=== PATIENT | female | born 1995 | race Caucasian/White ===

== ENCOUNTER → 2016-11-12 02:17 | Emergency (ER) | payer SELFPAY ==
[~2016-11-12 02:17] MED LIST: Ibuprofen TAB* 800 MG PO ONE; Iohexol 300* (CONTRAST) 10 ML SDV IV ONE
[2016-11-12 04:50] LABS: Hematocrit 38 % (35-47); Mean Corpuscular HGB Conc 35 g/dl (31-36); Mean Corpuscular Hemoglobin 30 pg (27-31); Mean Corpuscular Volume 88 fL (80-97); Mean Platelet Volume 7 um3 (7.4-10.4); Red Blood Count 4.29 10^6/ul (4.0-5.4); Red Cell Distribution Width 13 % (10.5-15); White Blood Count 6.9 10^3/ul (3.5-10.8)
[2016-11-12 05:02] LABS: ALT 10 U/L (7-52); AST 16 U/L (13-39); Albumin 4.3 g/dL (3.2-5.2); Alkaline Phosphatase 38 U/L (34-104); Anion Gap 6 mmol/L (2-11); BUN/Creatinine Ratio 18.6 (8-20); Blood Urea Nitrogen 11 mg/dL (6-24); CO2 Carbon Dioxide 24 mmol/L (22-32); Chloride 107 mmol/L (101-111); EGFR African American 163.9 (>60); EGFR Non-African American 127.5 (>60); Globulin 2.4 g/dL (2-4); Glucose 91 mg/dL (70-100); Potassium 3.7 mmol/L (3.5-5.0); Sodium 137 mmol/L (133-145); Total Protein 6.7 g/dL (6.4-8.9)
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
[2016-11-12 10:29] VITALS: BP 123/68
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
== END | disposition home or self-care (01) ==
LOC: ED 02:17
DX: S63.501A Unspecified sprain of right wrist, initial encounter (principal); T14.8XXA Other injury of unspecified body region, initial encounter; V40.5XXA Car driver injured in collision with pedestrian or animal in traffic accident, initial encounter; Y92.9 Unspecified place or not applicable; F17.210 Nicotine dependence, cigarettes, uncomplicated
CPT/HCPCS: 36415; 70450; 71260; 72125; 74177; 80053; 84702; 85025; 96374; 99282; A9270-GY; Q9967

== ENCOUNTER 2017-10-29 14:39 | Emergency (ER) | payer SELFPAY ==
[2017-10-29 15:02] VITALS: BP 119/75
--- NOTE | 2017-10-29 15:23 | UC ---
Complaint Female HPI - HPI Summary HPI Summary: The patient is a 21 year old female presenting to the with a chief complaint of UTI symptoms. She has been having frequent urination, pelvic pain, chills, and burning upon urination. She frequently gets UTIs, but can usually spot them early and get rid of them with home remedies. The pain is so bad it wakes her up at night. The patient denies any back pain, fevers, vaginal bleeding, and alcohol or drug use. The patient has had a tonsillectomy, and vapes. The patient has no family history that she knows of. - History Of Current Complaint Chief Complaint: UCGU Stated Complaint: FREQUENT URINATION Time Seen by Provider: 10/29/17 14:53 Hx Obtained From: Patient Hx Last Menstrual Period: 10/11/2017 Onset/Duration: Gradual Onset, Lasting Days Timing: Constant Severity Initially: Moderate Severity Currently: Moderate Pain Intensity: 4 Pain Scale Used: 0-10 Numeric Character: Sharp Aggravating Factor(s): Movement, Urination Alleviating Factor(s): Nothing Associated Signs And Symptoms: Negative: Fever, Back Pain, Vaginal Bleeding/ Discharge Related Hx: Similar Episode/Dx as: - has had UTIs in the past - Allergies/Home Medications Allergies/Adverse Reactions: Allergies Allergy/AdvReac Type Severity Reaction Status Date / Time No Known Allergies Allergy Verified 10/29/17 14:54 Home Medications: Home Medications Cranberry Conc/C/Bacill Coag [Azo Cranberry Tablet] 1 tab PO DAILY PRN 10/29/17 [History Confirmed 10/29/17] PMH/Surg Hx/FS Hx/Imm Hx Previously Healthy: No Cardiovascular History: Hypertension - negative GI/ History: Other Other GI/ History: UTIs - Surgical History Surgical History: Yes Surgery Procedure, Year, and Place: T&A - Family History Known Family History: Positive: Diabetes Family History: no cardio vasular issues in family lineage - Social History Alcohol Use: Rare Substance Use Type: Marijuana Substance Use Comment - Amount & Last Used: occasionally Smoking Status (MU): Current Some Day Smoker Type: eCigarettes Amount Used/How Often: 1/2 PPD Length of Time of Smoking/Using Tobacco: 3-4 yrs Have You Smoked in the Last Year: Yes - quit with Household Exposure Type: Cigarettes - Immunization History Most Recent Influenza Vaccination: unknown Most Recent Tetanus Shot: unknown Most Recent Pneumonia Vaccination: none Review of Systems Genitourinary: Dysuria, Frequency, Urgency, Vaginal/Penile Burning, Vaginal/ Penile Discharge - negative Musculoskeletal: Myalgia - lower pelvic abd pain All Other Systems Reviewed And Are Negative: Yes Physical Exam - Summary Physical Exam Summary: VITAL SIGNS: Reviewed. GENERAL: Patient is a well-developed and nourished (MALE OR FEMALE) who is lying comfortable in the stretcher. Patient is not in any acute respiratory distress. HEAD AND FACE: Normocephalic EYES: PERRLA, EOMI x 2. EARS: Hearing grossly intact. MOUTH: Oropharynx within normal limits. NECK: Supple, trachea is midline, no adenopathy, no JVD, no carotid bruit. CHEST: Symmetric, no tenderness at palpation LUNGS: Clear to auscultation bilaterally. No wheezing or crackles. CVS: Regular rate and rhythm, S1 and S2 present, no murmurs or gallops appreciated. ABDOMEN: Soft, non-tender. Bowel sounds are normal. No abdominal abnormal pulsations. EXTREMITIES: Full ROM in all major joints, no edema, no cyanosis or clubbing. NEURO: Alert and oriented x 3. No acute neurological deficits. Speech is normal and follows commands. SKIN: Dry and warm Triage Information Reviewed: Yes Vital Signs: Initial Vital Signs Temp 98.8 F 10/29/17 14:56 Pulse 77 10/29/17 14:56 Resp 18 10/29/17 14:56 BP 119/75 10/29/17 14:56 Pulse Ox 100 10/29/17 14:56 Vital Signs Reviewed: Yes Complaint Female Dx - Course Course Of Treatment: Patient is a 21-year-old female who presents to the urgent care with a chief complaint of having urgency, dysuria and urinary frequency. Urinalysis shows a positive leukocytes. Patient was given a prescription for ciprofloxacin. She was instructed to return to the urgent care with emergency department she develops any fever, nausea vomiting and back pain or any other symptom. She understands and agrees. - Differential Dx/Diagnosis Provider Diagnoses: urinary tract infection Discharge - Sign-Out/Discharge Documenting (check all that apply): Patient Departure All imaging exams completed and their final reports reviewed: No Studies - Discharge Plan Condition: Stable Disposition: HOME Prescriptions: Ciprofloxacin TAB* [Cipro 500 MG TAB*] 500 mg PO BID #6 tab Patient Education Materials: Urinary Tract Infection in Women (DC) Referrals: [facility] [place] [facility] [Outside] Additional Instructions: Take medications as instructed and adhere to plan Take Acetaminophen or ibuprofen for pain or fever Increase your fluid intake Return to the UC or go to the emergency department if symptoms worsen Follow-up with primary care physician in next 2-3 days - Billing Disposition and Condition Condition: STABLE Disposition: Home - Attestation Statements Document Initiated by Scribe: Yes Documenting Scribe: Zenaida Logan Provider For Whom Bharath is Documenting (Include Credential): Tu Car MD. Scribe Attestation: Zenaida Armas, scribed for Tu Car MD. on 10/29/17 at 2040. Scribe Documentation Reviewed: Yes Provider Attestation: The documentation as recorded by the scribe, Zenaida Logan accurately reflects the service I personally performed and the decisions made by , Tu Car MD.
== END 2017-10-29 16:15 | disposition home or self-care (01) ==
LOC: UCEAST 14:39
DX: N39.0 Urinary tract infection, site not specified (principal); Z87.440 Personal history of urinary (tract) infections; Z72.0 Tobacco use
CPT/HCPCS: 81003; 84702; 87077; 87086; 99212; G0463

== ENCOUNTER 2018-05-31 11:07 | Emergency (ER) | payer SELFPAY ==
[2018-05-31 11:19] VITALS: BP 127/82
--- NOTE | 2018-05-31 11:47 | UC ---
Abdominal Pain Female HPI - HPI Summary HPI Summary: 22-year-old woman comes in with a chief complaint of left lower quadrant abdominal pain. Started about 3 hours ago. Started fairly sudden onset. Pain is variable in intensity is moderate to severe at its worst. Movement and palpation makes the pain worse. No fevers or chills. No dysuria or urinary urgency. Has not seen any blood in her urine. Last menstrual period was 2 weeks ago she denies the possibility of . Denies any concern of STI. Had normal bowel movements yesterday. No bowel movement today does not feel like she has to have a bowel movement. No prior abdominal surgeries. No prior history of ovarian cysts. - History of Current Complaint Chief Complaint: UCAbdominalPain Stated Complaint: LOWER ABD PAIN Time Seen by Provider: 05/31/18 11:16 Hx Last Menstrual Period: 10/11/2017 Pain Intensity: 8 Allergies/Adverse Reactions: Allergies Allergy/AdvReac Type Severity Reaction Status Date / Time No Known Allergies Allergy Verified 05/31/18 11:19 Home Medications: Home Medications Ibuprofen 400 mg PO 05/31/18 [History] PMH/Surg Hx/FS Hx/Imm Hx Previously Healthy: Yes - Surgical History Surgical History: Yes Surgery Procedure, Year, and Place: T&A - Family History Known Family History: Positive: Diabetes Family History: no cardio vasular issues in family lineage - Social History Alcohol Use: Rare Substance Use Type: Marijuana Substance Use Comment - Amount & Last Used: occasionally Smoking Status (MU): Light Every Day Tobacco Smoker Type: eCigarettes Amount Used/How Often: 1/2 PPD Length of Time of Smoking/Using Tobacco: 3-4 yrs Have You Smoked in the Last Year: Yes - quit with Household Exposure Type: Cigarettes - Immunization History Most Recent Influenza Vaccination: unknown Most Recent Tetanus Shot: unknown Most Recent Pneumonia Vaccination: none Review of Systems All Other Systems Reviewed And Are Negative: Yes Constitutional: Positive: Negative Skin: Positive: Negative Eyes: Positive: Negative ENT: Positive: Negative Respiratory: Positive: Negative Cardiovascular: Positive: Negative Gastrointestinal: Positive: Abdominal Pain Genitourinary: Positive: Negative. Negative: Vaginal/Penile Discharge Motor: Positive: Negative Neurovascular: Positive: Negative Musculoskeletal: Positive: Negative Neurological: Positive: Negative Psychological: Positive: Negative Is Patient Immunocompromised?: No Physical Exam Triage Information Reviewed: Yes Appearance: Well-Appearing, Well-Nourished, Pain Distress - MILD; WORSE WITH MOVEMENT Vital Signs: Initial Vital Signs Temp 98.9 F 05/31/18 11:15 Pulse 79 05/31/18 11:15 Resp 18 05/31/18 11:15 BP 127/82 05/31/18 11:15 Pulse Ox 100 05/31/18 11:15 Vital Signs Reviewed: Yes Eye Exam: Normal Eyes: Positive: Conjunctiva Clear Neck: Positive: Supple Respiratory: Positive: Lungs clear, Normal breath sounds, No respiratory distress Abdomen Description: Positive: Other: - LLQ TENDERNESS TO PALPATION. NO MASS PALPATED. NO RLQ TENDERNESS. Bowel Sounds: Positive: Present Musculoskeletal Exam: Normal Musculoskeletal: Positive: Strength Intact, ROM Intact Neurological: Positive: Alert Psychological Exam: Normal Psychological: Positive: Normal Response To Family, Age Appropriate Behavior Skin Exam: Normal Abd Pain Female Course/Dx - Course Course Of Treatment: I recommended the patient go to the emergency department to get further evaluation and treatment. Ovulation pain, ovarian torsion and ovarian cysts are all the most likely differential. This was all explained to the patient and her mother is giving her a ride to the emergency department. - Differential Dx/Diagnosis Provider Diagnosis: LLQ abdominal pain Discharge - Sign-Out/Discharge Documenting (check all that apply): Patient Departure All imaging exams completed and their final reports reviewed: No Studies - Discharge Plan Condition: Stable Disposition: HOME-RECOMMEND TO ED [place] [facility] [place] [place] [place]Outside] Additional Instructions: GO DIRECTLY TO THE EMERGENCY DEPARTMENT FOR FURTHER EVALUATION. - Billing Disposition and Condition Condition: STABLE Disposition: Home-Recommend to ED
== END 2018-05-31 11:55 | disposition home health service (06) ==
LOC: UCEAST 11:07
DX: R10.32 Left lower quadrant pain (principal); F17.290 Nicotine dependence, other tobacco product, uncomplicated
CPT/HCPCS: 81003; 84702; 87086; 87088; 99212; G0463

== ENCOUNTER 2018-05-31 12:08 | Emergency (ER) | payer SELFPAY ==
--- NOTE | 2018-05-31 14:18 | ED ---
Abdominal Pain/Female - HPI Summary HPI Summary: Patient is a 22-year-old female presenting to the ED from urgent care with acute onset left lower quadrant pain. She states since her arrival to the ED, symptoms have drastically improved. She was given 400 mg ibuprofen over urgent care. A UA was obtained and was normal. She states she has never had a history of ovarian or ruptured cysts in the past. Denies chance of . Patient states she was working when she felt acute onset of the left lower quadrant pain and symptoms remained for approximately one hour. While being seen at the urgent care, symptoms began to improve and by the time she arrived to the ED, she states symptoms have all but resolved. She endorses a 1/10 pain to the area. Denies any N/V/C/D. - History of Current Complaint Chief Complaint: EDAbdPain Stated Complaint: POSS OVARIAN CYST PER PT Time Seen by Provider: 05/31/18 12:59 Hx Obtained From: Patient Hx Last Menstrual Period: 10/11/2017 ?: No Onset/Duration: Sudden Onset Timing: Constant Severity Initially: Mild Severity Currently: None Pain Intensity: 7 Pain Scale Used: 0-10 Numeric Location: Discrete At: LLQ Radiates: No Character: Sharp - previously (now achy) Aggravating Factor(s): Nothing Alleviating Factor(s): Nothing Associated Signs and Symptoms: Positive: Negative - Risk Factors Ectopic Risk Factor: Negative Ovarian Torsion Risk Factor: Reproductive Age Allergies/Adverse Reactions: Allergies Allergy/AdvReac Type Severity Reaction Status Date / Time No Known Allergies Allergy Verified 05/31/18 11:19 Home Medications: Home Medications NK [No Home Medications Reported] 05/31/18 [History Confirmed 05/31/18] PMH/Surg Hx/FS Hx/Imm Hx Previously Healthy: Yes Endocrine/Hematology History: Denies: Hx Diabetes Cardiovascular History: Denies: Hx Hypertension History: Denies: Hx Renal Disease - Cancer History Cancer Type, Location and Year: none - Surgical History Surgery Procedure, Year, and Place: T&A - Immunization History Hx Pertussis Vaccination: No Immunizations Up to Date: Yes Infectious Disease History: Yes Infectious Disease History: Reports: Hx of Known/Suspected MRSA - ? - NOT CONFIRMED Denies: Traveled Outside the [place] in Last 30 Days - Family History Known Family History: Positive: Diabetes Family History: no cardio vasular issues in family lineage - Social History Occupation: Employed Full-time Lives: With Family Alcohol Use: Rare Hx Substance Use: Yes Substance Use Type: Reports: Marijuana Substance Use Comment - Amount & Last Used: occasionally Hx Tobacco Use: Yes Smoking Status (MU): Current Some Day Smoker Type: eCigarettes Amount Used/How Often: 1/2 PPD Length of Time of Smoking/Using Tobacco: 3-4 yrs Have You Smoked in the Last Year: Yes - quit with Review of Systems Constitutional: Negative Negative: Fever, Chills, Fatigue, Skin Diaphoresis Negative: Palpitations, Chest Pain Positive: Abdominal Pain - LLQ pain. Negative: Vomiting, Diarrhea, Nausea Genitourinary: Negative Positive: no symptoms reported, see HPI. Negative: burning, dysuria, discharge , hematuria Negative: Rash, Bruising Neurological: Negative All Other Systems Reviewed And Are Negative: Yes Physical Exam Triage Information Reviewed: Yes Vital Signs On Initial Exam: Initial Vitals Temp Pulse Resp BP Pulse Ox 98.9 F 64 16 132/76 98 05/31/18 12:19 05/31/18 12:19 05/31/18 12:19 05/31/18 12:19 05/31/18 12:19 Vital Signs Reviewed: Yes Appearance: Positive: Well-Appearing, Well-Nourished, Thin. Negative: Ill- Appearing Skin: Positive: Warm, Skin Color Reflects Adequate Perfusion Head/Face: Positive: Normal Head/Face Inspection Eyes: Positive: EOMI, ARNOL, Conjunctiva Clear Neck: Positive: Supple, No Lymphadenopathy Respiratory/Lung Sounds: Positive: Clear to Auscultation, Breath Sounds Present Cardiovascular: Positive: RRR, Pulses are Symmetrical in both Upper and Lower Extremities Abdomen Description: Positive: Nontender, Soft. Negative: CVA Tenderness (R), CVA Tenderness (L), Distended, Guarding, McBurney's Point Tenderness Bowel Sounds: Positive: Present Neurological: Positive: Normal, Sensory/Motor Intact, Alert, Oriented to Person Place, Time Psychiatric: Positive: Normal, Affect/Mood Appropriate AVPU Assessment: Alert Diagnostics - Vital Signs Vital Signs Temp Pulse Resp BP Pulse Ox 05/31/18 12:19 98.9 F 64 16 132/76 98 - Laboratory Lab Statement: Any lab studies that have been ordered have been reviewed, and results considered in the medical decision making process. Abdominal Pain Fem Course/Dx - Course Course Of Treatment: During the course of treatment, the patient's evaluated for acute onset LLQ pain. On physical examination, patient appears well, nontoxic appearing and endorses pain at 1/10. She has no tenderness on deep palpation of all 4 quadrants. She states she is having a "ache" to the area of her left ovary, but this is drastically reduced since approximately 2 hours ago. She was also given 400 mg ibuprofen which improved her symptoms. She is nondiaphoretic and nontoxic appearing. I discussed the treatment options with the patient and the mother. They state they would like to be discharged home at this time and I have advised this is likely a ruptured ovarian cyst. I have also stated I would be concerned with a ovarian torsion if symptoms worsened or continued, however since patient has improved, no TVUS will be obtained at this time. She is okay for discharge at this time. I have encouraged Tylenol and ibuprofen intermittently for discomfort. - Diagnoses Differential Diagnosis: Positive: Other - Ovarian cyst, ruptured ovarian cyst, ovarian torsion, left lower quadrant tenderness Provider Diagnoses: Abdominal pain, left lower quadrant Discharge - Sign-Out/Discharge Documenting (check all that apply): Patient Departure Patient Received Moderate/Deep Sedation with Procedure: No - Discharge Plan Condition: Stable Disposition: HOME Patient Education Materials: Ruptured Ovarian Cyst (ED) Referrals: No Primary Care Phys,NOPCP [Primary Care Provider] - Additional Instructions: Tylenol 650 mg Ibuprofen 600mg You may use these intermittently, using 1 medication every 3 hours He may also use moist heat to the area for any discomfort - Billing Disposition and Condition Condition: STABLE Disposition: Home
[2018-05-31 14:21] VITALS: BP 126/73
== END 2018-05-31 14:20 | disposition home or self-care (01) ==
LOC: ED 12:08
DX: R10.32 Left lower quadrant pain (principal); F17.210 Nicotine dependence, cigarettes, uncomplicated
CPT/HCPCS: 99282

== ENCOUNTER 2018-08-24 14:56 | Emergency (ER) | payer SELFPAY ==
[2018-08-24 16:13] VITALS: BP 143/82
[2018-08-24] MEDS ORDERED: Ondansetron ODT TAB* 4 MG PO ONE (16:35)
--- NOTE | 2018-08-24 16:35 | UC ---
Throat Pain/Nasal Mike HPI - HPI Summary HPI Summary: 22 y/o female presents to the urgent care c/o sore throat, RT side lymph node and RT ear pain for the past week. Pt reports her was Dx w/ strep about 3 days ago. Yesterday symptoms worsen w/ N/V. Pt states N/V started around 2100pm w/ 6 episodes all night. No more vomiting since 0700AM today. However she still feels w/ nausea. Pt states pain w/ swallowing and ear pain is mild 3/10. She has taken Ibuprofen or Tylenol daily to alleviate symptoms. At times she has a dry cough. She had bronchitis about 1 months ago, but was never given antibiotics. Pt denies abdominal pain, fever, SOB, chest pain, abdominal pain, N/V/D, rashes, vaginal discharge, urinary symptoms, back pain, flank pain,Hx of STD's . LMP: 08/07/2018 w/ regular menstrual cycles. - History of Current Complaint Chief Complaint: UCGeneralIllness Stated Complaint: VOMITING Time Seen by Provider: 08/24/18 16:09 Hx Obtained From: Patient Hx Last Menstrual Period: 08/07/18 Onset/Duration: Gradual Onset, Lasting Weeks - 1 weeks w/ RT side lymph node , sore throat and RT ear pain, Still Present, Worse Since - last night w/ N/V Severity: Mild Pain Intensity: 3 Pain Scale Used: 0-10 Numeric Cough: Nonproductive Associated Signs & Symptoms: Positive: Nasal Discharge, Fever - subjective lowe grade fever last night, Vomiting. Negative: Dysphagia, Drooling, Wheezing, Hoarseness - Epiglottits Risk Factors Epiglottis Risk Factors: Negative - Allergies/Home Medications Allergies/Adverse Reactions: Allergies Allergy/AdvReac Type Severity Reaction Status Date / Time No Known Allergies Allergy Verified 08/24/18 16:13 Home Medications: Home Medications Guanfacine HCl [Guanfacine HCl ER] 1 tab PO ONCE 08/24/18 [History Confirmed ] Ibuprofen 400 mg PO ONCE PRN 08/24/18 [History Confirmed 08/24/18] Iron 1 tab PO DAILY PRN 08/24/18 [History Confirmed 08/24/18] PMH/Surg Hx/FS Hx/Imm Hx Previously Healthy: Yes Respiratory History: Asthma - Surgical History Surgical History: Yes Surgery Procedure, Year, and Place: T&A - Family History Known Family History: Positive: Diabetes Family History: no cardio vasular issues in family lineage - Social History Occupation: Employed Full-time Lives: With Family Alcohol Use: Rare Substance Use Type: Marijuana Substance Use Comment - Amount & Last Used: occasionally Smoking Status (MU): Current Some Day Smoker Type: eCigarettes Amount Used/How Often: 1/2 PPD Length of Time of Smoking/Using Tobacco: 3-4 yrs Have You Smoked in the Last Year: Yes - quit with Household Exposure Type: Cigarettes - Immunization History Most Recent Influenza Vaccination: unknown Most Recent Tetanus Shot: unknown Most Recent Pneumonia Vaccination: none Review of Systems All Other Systems Reviewed And Are Negative: Yes Constitutional: Positive: Fatigue Skin: Positive: Negative Eyes: Positive: Negative ENT: Positive: Sore Throat, Ear Ache - RT ear pain, Other - pND Respiratory: Positive: Cough - dry Cardiovascular: Positive: Negative Gastrointestinal: Positive: Vomiting - 6 episodes, Nausea. Negative: Abdominal Pain Genitourinary: Positive: Negative Motor: Positive: Negative Neurovascular: Positive: Negative Musculoskeletal: Positive: Negative Neurological: Positive: Negative Psychological: Positive: Negative Is Patient Immunocompromised?: No Physical Exam - Summary Physical Exam Summary: VITAL SIGNS: Reviewed. GENERAL: Patient is a well developed and nourished female who is sitting comfortable in the examining table. Patient is not in any acute respiratory distress. HEAD AND FACE: No signs of trauma. No ecchymosis, hematomas or skull depressions. No sinus tenderness. EYES: PERRLA, EOMI x 2, No injected conjunctiva, no nystagmus. No photophobia. EARS: Hearing grossly intact. RT external ear canal w/ erythema and yellowish crusting, RT TM WNL, left external ear canal clear, LF TM WNL. . MOUTH: Positive pharynx with erythema, no exudates, mild palatal petechiae. NO tonsillar enlargement . Uvula in midline. NECK: Supple, trachea is midline, Positive anterior cervical lymphadenopathy and postauricualar , no JVD, no carotid bruit, no c-spine tenderness, neck with full ROM. No meningeal signs, no Kernig's or brudzinskis signs. CHEST: Symmetric, no tenderness at palpation LUNGS: Clear to auscultation bilaterally. No wheezing or crackles. CVS: Regular rate and rhythm, S1 and S2 present, no murmurs or gallops appreciated. Abdomen Description: Positive: Nontender, Other: - Abd: Flat with no distention. No surface trauma, scars, incisions. hyperactive bowel sounds present in all four quadrants. No tenderness, guarding, rigidity to palpation. No masses palpated, no pulsation in epigastric area. No organomegaly. Negative [place] signs. No periumbilical tenderness. No rebound in the lower quadrants. NT over McBurneys point. Good femoral pulses bilaterally. No hernia noted. No CVAT bilaterally EXTREMITIES: FROM in all major joints, no edema, no cyanosis or clubbing. NEURO: Alert and oriented x 3. No acute neurological deficits. Speech is normal and follows commands. SKIN: Dry and warm Triage Information Reviewed: Yes Vital Signs: Initial Vital Signs Temp 99 F 08/24/18 16:05 Pulse 92 08/24/18 16:05 Resp 18 08/24/18 16:05 BP 143/82 08/24/18 16:05 Pulse Ox 98 08/24/18 16:05 Throat Pain/Nasal Course/Dx - Course Course Of Treatment: 22 y/o female presents to the urgent care c/o sore throat, RT side lymph node and RT ear pain for the past week. Pt reports her was Dx w/ strep about 3 days ago. Yesterday symptoms worsen w/ N/V. Pt states N/V started around 2100pm w/ 6 episodes all night. No more vomiting since 0700AM today. However she still feels w/ nausea. Pt states pain w/ swallowing and ear pain is mild 3/10. She has taken Ibuprofen or Tylenol daily to alleviate symptoms. At times she has a dry cough. She had bronchitis about 1 months ago, but was never given antibiotics. Pt denies abdominal pain, fever, SOB, chest pain, abdominal pain, N/V/D, rashes, vaginal discharge, urinary symptoms, back pain, flank pain,Hx of STD's . LMP: 08/07/2018 w/ regular menstrual cycles. Hx obtained. Pt is hemodynamically stable, A&OX3, vitals: WNL.Pt most likely with a gastroenteritis and RT otits externa on examination. UA: trace blood and 4+ ketones, test: negative. Rapid strep: negative. Pt given Zofran PO by the nurse. Pt tolerated well medication and felt better. Pt advised she need IV fluid since 4+ ketone in her urine. Pt declined and states she will buy Pedialyte or Gatorade to increases hydration. Pt explaiend the importance of hydration and if she continues w/ vomiting or develops abdominal pain she should go immediately to the ER fo rfurther management. Pt Rx Zofran PO for Nausea and vomiting, Cortsiporin otic drops for her ear infection. Strongly advised to increase hydration, eat soft meals, rest. Pt's BP is elevated today advised to decrease salt in diet, monitor BP and f/u with PCP for further management. Pt explained D/C instructions. Pt understood and agreed w/ plan of care. Pt left the clinic ambulating, A&OX3 - Differential Dx/Diagnosis Differential Diagnosis/HQI/PQRI: Laryngitis, Otitis Media, Peritonsillar Abscess , Pharyngitis, URI, Other - gastroenteritis Provider Diagnosis: Viral gastroenteritis, Right otitis externa, Nausea & vomiting, Elevated BP without diagnosis of hypertension Discharge - Sign-Out/Discharge Documenting (check all that apply): Patient Departure - D/C home All imaging exams completed and their final reports reviewed: No Studies - Discharge Plan Condition: Stable Disposition: HOME Prescriptions: Neomyc/Polym/HC 1% OTIC SUSP* [Cortisporin Otic Susp 1%*] 4 drop LEFT EAR TID # 1 btl Ondansetron ODT TAB* [Zofran 4 MG Odt TAB*] 4 mg PO Q8H PRN #9 tab.odt PRN Reason: Vomiting Patient Education Materials: Otitis Externa (ED), Acute Nausea and Vomiting (ED ) Forms: *Work Release Referrals: [facility] [Outside] - 2 Days Ross Jorgensen MD [Medical Doctor] - If Needed Additional Instructions: 1- Please increase fluid intake as soon as possible w/ Pedialyte or Gatorade since you decline IV-fluids. eat soft meals, and avoid strenuous exercise and rest 2-Take Zofran PO as directed to alleviate N/V. 3- Apply Cortisporin otic drops as directed on your RT ear to alleviate symptoms 4-Please take ibuprofen PO q6-8hrs prn as instructed after meals to alleviate pain and swelling. Increase fluid intake, eat well, rest and avoid strenuous exercise 5-If symptoms do not improve please return to the urgent care or f/u with your PCP for further evaluation and treatment. 6- If you develops fever or abdominal pain w/ recurrent episodes of N/V please go immediately to the ER for further management 7- There was some hematuria in your Urine, please f/u w/ your PCP of Urologist DR Shay for further management. - Billing Disposition and Condition Condition: STABLE Disposition: Home
== END 2018-08-24 17:39 | disposition home or self-care (01) ==
LOC: UCEAST 14:56
DX: A08.4 Viral intestinal infection, unspecified (principal); H60.91 Unspecified otitis externa, right ear; R03.0 Elevated blood-pressure reading, without diagnosis of hypertension; J45.909 Unspecified asthma, uncomplicated; F17.210 Nicotine dependence, cigarettes, uncomplicated
CPT/HCPCS: 81003; 84702; 87651; 99212; A9270-GY; G0463

== ENCOUNTER 2018-08-27 13:11 | Emergency (ER) | payer BC ==
[2018-08-27] MEDS ORDERED: NS 0.9% 1000 ML** 1,000 ML IV ONE (13:42)
[2018-08-27] MEDS ORDERED: Ondansetron INJ* 2 MG/ML VIAL IV ONE (13:43)
--- NOTE | 2018-08-27 13:44 | UC ---
UC General HPI - HPI Summary HPI Summary: 22-year-old with nausea vomiting and diarrhea over the past week. She actually had vomiting for the first part of the week and that has stopped and now she's had diarrhea yesterday and today to the point where she is feeling lightheaded and dizzy. She continues to have nausea. She was seen here approximately 4 days ago but refused IVs. test at that time was negative. - History of Current Complaint Chief Complaint: UCGeneralIllness Stated Complaint: NAUSEA DIARRHEA Time Seen by Provider: 08/27/18 13:15 Hx Obtained From: Patient Hx Last Menstrual Period: 08/07/18 Onset/Duration: Sudden Onset Timing: Intermittent Episodes Lasting: - Patient has had diarrhea approximately 6 times in the past 24 hours to the point where now watery. She denies any travel outside the [place], no other family members are ill, she has city water. Onset Severity: Moderate Current Severity: Moderate Pain Intensity: 0 - Allergy/Home Medications Allergies/Adverse Reactions: Allergies Allergy/AdvReac Type Severity Reaction Status Date / Time No Known Allergies Allergy Verified 08/27/18 13:27 PMH/Surg Hx/FS Hx/Imm Hx Previously Healthy: Yes - Surgical History Surgical History: Yes Surgery Procedure, Year, and Place: T&A - Family History Known Family History: Positive: Diabetes Family History: no cardio vasular issues in family lineage - Social History Alcohol Use: Rare Substance Use Type: Marijuana Substance Use Comment - Amount & Last Used: occasionally Smoking Status (MU): Current Some Day Smoker Type: eCigarettes Amount Used/How Often: 1/2 PPD Length of Time of Smoking/Using Tobacco: 3-4 yrs Have You Smoked in the Last Year: Yes - quit with Household Exposure Type: Cigarettes - Immunization History Most Recent Influenza Vaccination: unknown Most Recent Tetanus Shot: unknown Most Recent Pneumonia Vaccination: none Review of Systems All Other Systems Reviewed And Are Negative: Yes Gastrointestinal: Positive: Abdominal Pain - The abdominal pain is more associated with cramping from diarrhea., Vomiting, Diarrhea Is Patient Immunocompromised?: No Physical Exam Triage Information Reviewed: Yes Appearance: Well-Appearing, No Pain Distress, Well-Nourished Vital Signs: Initial Vital Signs Temp 98 F 08/27/18 13:23 Pulse 74 08/27/18 13:23 Resp 16 08/27/18 13:23 BP 127/72 08/27/18 13:23 Pulse Ox 100 08/27/18 13:23 Vital Signs Reviewed: Yes Eye Exam: Normal ENT: Positive: Hearing grossly normal, Pharynx normal, TMs normal, Uvula midline Neck: Positive: Supple, Nontender, No Lymphadenopathy Respiratory: Positive: Lungs clear, Normal breath sounds, No respiratory distress, No accessory muscle use Cardiovascular: Positive: RRR, No Murmur, Pulses Normal, Brisk Capillary Refill Abdomen Description: Positive: Nontender, No Organomegaly, Soft. Negative: CVA Tenderness (R), CVA Tenderness (L), Distended, Guarding, Hepatomegaly, McBurney' s Point Tenderness, Splenomegaly Bowel Sounds: Positive: Hyperactive Musculoskeletal Exam: Normal Neurological Exam: Normal Psychological Exam: Normal Skin Exam: Normal Course/Dx - Course Course Of Treatment: The patient received 1 L of normal saline as well as Zofran 4 mg. She was feeling better prior to discharge. She may continue Zofran which she has at home every 8 hours over the next couple of days for nausea. She is to go the emergency room if she has any worsening symptoms, continued diarrhea and feeling of passing out. Stool cultures were obtained for culture and C. difficile. If she continues to have diarrhea on Friday but no worsening of symptoms she is to follow-up with her primary care provider. - Diagnoses Provider Diagnosis: Diarrhea Discharge - Sign-Out/Discharge Documenting (check all that apply): Patient Departure All imaging exams completed and their final reports reviewed: No Studies - Discharge Plan Condition: Fair Disposition: HOME Patient Education Materials: Acute Diarrhea (ED) Referrals: [facility] [Outside] No Primary Care Phys,NOPCP [Primary Care Provider] - Additional Instructions: Increase fluids, rest, continue Zofran every 8 hours as needed. If you have any worsening symptoms or continued diarrhea to the point where you feel lightheaded and weak than follow-up in the emergency room. Follow-up with your primary care provider on Friday if no improvement. - Billing Disposition and Condition Condition: FAIR Disposition: Home - Attestation Statements Provider Attestation: I was available for consult. This patient was seen by the KODY. The patient was not presented to, seen by, or examined by me. Ericka
[2018-08-27 15:01] VITALS: BP 119/54
[2018-08-27 20:17] LABS: HIV 4th Generation Negative (Negative)
== END 2018-08-27 15:20 | disposition home or self-care (01) ==
LOC: UCEAST 13:11
DX: R19.7 Diarrhea, unspecified (principal); R11.2 Nausea with vomiting, unspecified; F17.210 Nicotine dependence, cigarettes, uncomplicated
CPT/HCPCS: 36415; 87045; 87046; 87389; 87493; 87899; 96360; 96374; 99211; G0463; J2405

== ENCOUNTER 2018-08-27 18:41 | Emergency (ER) | payer BC ==
[2018-08-27] MEDS ORDERED: Diphenoxylat/Atrop 2.5-0.025M* 1 TAB PO ONE (21:37)
[2018-08-27] MEDS ORDERED: Metoclopramide IV* 5 MG/ML 2 ML VIAL IV SLOW PU ONE (21:37)
[2018-08-27] MEDS: NS 0.9% 1000 ML** 2,000 ML IV ONE (22:07)
[2018-08-27 22:30] LABS: ABS Lymphocytes 1.8 10^3/ul (1.0-4.8); ABS Monocytes 0.8 10^3/ul (0-0.8); ABS Neutrophils 6.1 10^3/ul (1.5-7.7); Eosinophil % 0.3 %; Hematocrit 46 % (35-47); Hemoglobin 15.9 g/dL (12.0-16.0); Lymphocyte % 20.7 %; Mean Corpuscular HGB Conc 35 g/dL (31-36); Mean Corpuscular Hemoglobin 30 pg (27-31); Mean Corpuscular Volume 87 fL (80-97); Mean Platelet Volume 7.7 fL (7.4-10.4); Platelet Count 292 10^3/uL (150-450); Red Blood Count 5.29 10^6 /uL (3.70-4.87); Red Cell Distribution Width 14 % (10-15); White Blood Count 8.7 10^3/uL (3.5-10.8)
[2018-08-27 22:40] LABS: ALT 14 U/L (7-52); AST 19 U/L (13-39); Albumin 4.9 g/dL (3.2-5.2); Albumin/Globulin Ratio 1.8 (1-3); Alkaline Phosphatase 42 U/L (34-104); Amylase 28 U/L (29-103); Anion Gap 6 mmol/L (2-11); Blood Urea Nitrogen 6 mg/dL (6-24); C Reactive Protein 1.59 mg/L (<8.01); CO2 Carbon Dioxide 23 mmol/L (22-32); Calcium 9.5 mg/dL (8.6-10.3); Chloride 109 mmol/L (101-111); EGFR African American 149.9 (>60); EGFR Non-African American 123.9 (>60); Globulin 2.8 g/dL (2-4); Glucose 90 mg/dL (70-100); Potassium 3.8 mmol/L (3.5-5.0); Sodium 138 mmol/L (135-145); Total Protein 7.7 g/dL (6.4-8.9)
[2018-08-27 22:46] LABS: HCG Pregnancy < 0.60 mIU/mL
[2018-08-27] MEDS ORDERED: diPHENhydraMINE IV* 50 MG/ML 1 ml VIAL (BENADRYL) SLOW PUSH ONE (23:03)
[2018-08-27] MEDS ORDERED: Etomidate* 2 MG/ML 10 ML VIAL IV ONE (23:04)
[2018-08-27] MEDS ORDERED: Succinylcholine* 20 MG/ML 10 ML VIAL IV ONE (23:04)
--- NOTE | 2018-08-27 23:15 | ED ---
Complex/Multi-Sys Presentation - HPI Summary HPI Summary: This patient is a 22 year old F presenting to [facility] with a chief complaint of N/ V/D since 4 days ago. Pt states she was vomiting all night constantly for 10 hours for 2 days 4 days ago. She notes her vomiting resolved, but diarrhea began 2 days ago. She says she went [facility] 3 [facility] ago for generalized weakness and went again today because she still felt weak and lethargic. She states she came into the ED because she feels she should have been better by now. The patient rates the pain 3/10 in severity. Symptoms aggravated by nothing. Symptoms alleviated by nothing. Patient reports fever, body soreness for the past 4 days, and hematuria. - History Of Current Complaint Chief Complaint: EDNauseaVomitDiarrh Time Seen by Provider: 08/27/18 21:26 Hx Obtained From: Patient Onset/Duration: Sudden Onset, Lasting Days - vomiting began 4 days ago, diarrhea began 2 days ago, Still Present - diarrhea still present, Resolved - vomiting has resolved Timing: Constant - vomiting was constant for 2 days starting 4 days ago Severity Currently: Mild Aggravating Factor(s): nothing Alleviating Factor(s): nothing Associated Signs And Symptoms: Positive: Weakness, Nausea, Vomiting, Diarrhea, Fever, Other - positive - body soreness for the past 4 days, hematuria, lethargy - Allergies/Home Medications Allergies/Adverse Reactions: Allergies Allergy/AdvReac Type Severity Reaction Status Date / Time No Known Allergies Allergy Verified 08/27/18 13:27 Home Medications: Home Medications NK [No Home Medications Reported] 08/27/18 [History Confirmed 08/27/18] PMH/Surg Hx/FS Hx/Imm Hx Previously Healthy: No Endocrine/Hematology History: Denies: Hx Diabetes Cardiovascular History: Denies: Hx Hypertension History: Denies: Hx Renal Disease EENT History: Denies: Hx Deafness - Cancer History Cancer Type, Location and Year: none - Surgical History Surgical History: Yes Surgery Procedure, Year, and Place: T&A Infectious Disease History: No Infectious Disease History: Reports: Hx of Known/Suspected MRSA - hx of -unsure Denies: Traveled Outside the [place] in Last 30 Days - Family History Known Family History: Positive: Diabetes Family History: no cardio vasular issues in family lineage - Social History Alcohol Use: Rare Hx Substance Use: Yes Substance Use Type: Reports: Marijuana Substance Use Comment - Amount & Last Used: occasionally Hx Tobacco Use: Yes Smoking Status (MU): Current Some Day Smoker Type: eCigbrittaniettes Amount Used/How Often: 1/2 PPD Length of Time of Smoking/Using Tobacco: 3-4 yrs Have You Smoked in the Last Year: Yes - quit with Review of Systems Constitutional: Other - positive - lethargic Positive: Fever Positive: Vomiting, Diarrhea, Nausea Positive: hematuria Positive: Myalgia - body soreness for the past 4 days Positive: Weakness All Other Systems Reviewed And Are Negative: Yes Physical Exam - Summary Physical Exam Summary: VITAL SIGNS: Reviewed. GENERAL: Patient is a well-developed and nourished FEMALE who is lying comfortable in the stretcher. Patient is not in any acute respiratory distress. HEAD AND FACE: No signs of trauma. No ecchymosis, hematomas or skull depressions. No sinus tenderness. EYES: PERRLA, EOMI x 2, No injected conjunctiva, no nystagmus. EARS: Hearing grossly intact. Ear canals and tympanic membranes are within normal limits. MOUTH: Oropharynx within normal limits. NECK: Supple, trachea is midline, no adenopathy, no JVD, no carotid bruit, no c- spine tenderness, neck with full ROM CHEST: Symmetric, no tenderness at palpation LUNGS: Clear to auscultation bilaterally. No wheezing or crackles. CVS: Regular rate and rhythm, S1 and S2 present, no murmurs or gallops appreciated. ABDOMEN: Hyperactive bowel sounds. Soft, non-tender. No signs of distention. No rebound no guarding, and no masses palpated. EXTREMITIES: FROM in all major joints, no edema, no cyanosis or clubbing. NEURO: Alert and oriented x 3. No acute neurological deficits. Speech is normal and follows commands. SKIN: Dry and warm Triage Information Reviewed: Yes Vital Signs On Initial Exam: Initial Vitals Temp Pulse Resp BP Pulse Ox 98.7 F 60 18 137/96 99 08/27/18 18:43 08/27/18 18:43 08/27/18 18:43 08/27/18 18:43 08/27/18 18:43 Vital Signs Reviewed: Yes Diagnostics - Vital Signs Vital Signs Temp Pulse Resp BP Pulse Ox 08/27/18 22:21 68 119/70 98 08/27/18 22:00 60 99 08/27/18 21:50 54 128/76 100 08/27/18 21:23 59 99 08/27/18 21:21 55 130/80 100 08/27/18 20:25 98.3 F 60 16 125/87 99 08/27/18 18:43 98.7 F 60 18 137/96 99 - Laboratory Lab Results: Lab Results 08/27/18 08/27/18 Range/Units 22:14 22:14 WBC 8.7 (3.5-10.8) 10^3/uL RBC 5.29 H (3.70-4.87) 10^6 /uL Hgb 15.9 (12.0-16.0) g/dL Hct 46 (35-47) % MCV 87 (80-97) fL MCH 30 (27-31) pg MCHC 35 (31-36) g/dL RDW 14 (10-15) % Plt Count 292 (150-450) 10^3/uL MPV 7.7 (7.4-10.4) fL Neut % (Auto) 69.5 % Lymph % (Auto) 20.7 % [place] % (Auto) 9.2 % Eos % (Auto) 0.3 % Baso % (Auto) 0.3 % Absolute Neuts (auto) 6.1 (1.5-7.7) 10^3/ul Absolute Lymphs (auto) 1.8 (1.0-4.8) 10^3/ul Absolute Monos (auto) 0.8 (0-0.8) 10^3/ul Absolute Eos (auto) 0.0 (0-0.6) 10^3/ul Absolute Basos (auto) 0.0 (0-0.2) 10^3/ul Absolute Nucleated RBC 0.0 10^3/ul Nucleated RBC % 0.0 Sodium 138 (135-145) mmol/L Potassium 3.8 (3.5-5.0) mmol/L Chloride 109 (101-111) mmol/L Carbon Dioxide 23 (22-32) mmol/L Anion Gap 6 (2-11) mmol/L BUN 6 (6-24) mg/dL Creatinine 0.60 (0.51-0.95) mg/dL Est GFR ( Amer) 149.9 (>60) Est GFR (Non-Af Amer) 123.9 (>60) BUN/Creatinine Ratio 10.0 (8-20) Glucose 90 (70-100) mg/dL Calcium 9.5 (8.6-10.3) mg/dL Total Bilirubin 0.60 (0.2-1.0) mg/dL AST 19 (13-39) U/L ALT 14 (7-52) U/L Alkaline Phosphatase 42 (34-104) U/L C-Reactive Protein 1.59 (<8.01) mg/L Total Protein 7.7 (6.4-8.9) g/dL Albumin 4.9 (3.2-5.2) g/dL Globulin 2.8 (2-4) g/dL Albumin/Globulin Ratio 1.8 (1-3) Amylase 28 L (29-103) U/L Lipase 10 L (11.0-82.0) U/L Beta HCG, Quant < 0.60 mIU/mL Result Diagrams: 08/27/18 22:14 08/27/18 22:14 Lab Statement: Any lab studies that have been ordered have been reviewed, and results considered in the medical decision making process. Complex Multi-Symp Course/Dx Course Of Treatment: This patient is a 22 year old F presenting to [facility] with a chief complaint of N/V/D since 4 days ago. Pt states she was vomiting all night constantly for 10 hours for 2 days 4 days ago. She notes her vomiting resolved, but diarrhea began 2 days ago. She says she went to [facility] 3 [facility] ago for generalized weakness and went again today because she still felt weak and lethargic. She states she came into the ED because she feels she should have been better by now. The patient rates the pain 3/10 in severity. Symptoms aggravated by nothing. Symptoms alleviated by nothing. Patient reports fever, body soreness for the past 4 days, and hematuria. Physical exam shows hyperactive bowel sounds. Lab results show RBC 5.29, amylase 28, lipase 10. During the ED course, the pt was given Benadryl, Lomotil, Amidate, Reglan, fluids, and Anectine. Dx is gastroenteritis. Pt is agreeable to discharge. Pt was told to follow up with a primary care provider within 1-2 days and to return to the ED for any new or worsening symptoms. - Diagnoses Provider Diagnoses: Gastroenteritis Is Visit Related: No Discharge - Sign-Out/Discharge Documenting (check all that apply): Patient Departure - discharge Patient Received Moderate/Deep Sedation with Procedure: No - Discharge Plan Condition: Stable Disposition: HOME Patient Education Materials: Gastroenteritis (ED) Referrals: No Primary Care Phys,NOPCP [Primary Care Provider] - [facility] [Outside] - 1 Day Additional Instructions: Follow up with a primary care provider within 1-2 days. Return to the ED for any new or worsening symptoms. - Attestation Statements Document Initiated by Scribe: Yes Documenting Scribe: Roberto Emery Provider For Whom Scribe is Documenting (Include Credential): Dr. Deidre Casillas MD Scribe Attestation: IRoberto scribed for Dr. Deidre Casillas MD on 08/28/18 at 0049. Status of Scribe Document: Ready
[2018-08-27 23:22] VITALS: BP 127/75
[2018-08-27 23:23] LABS: Urine Appearance Clear; Urine Bilirubin Negative (Negative); Urine Blood Negative (Negative); Urine Color Yellow; Urine Glucose Negative (Negative); Urine Ketones Negative (Negative); Urine Nitrite Negative (Negative); Urine Protein Negative (Negative); Urine Specific Gravity 1.013 (1.010-1.030); Urine Urobilinogen Negative (Negative)
[2018-08-27] MEDS ORDERED: Propofol* 500 MG/50 ML BTL IV SCH (23:45)
== END 2018-08-27 23:43 | disposition home or self-care (01) ==
LOC: ED 18:41
DX: K52.9 Noninfective gastroenteritis and colitis, unspecified (principal); F17.290 Nicotine dependence, other tobacco product, uncomplicated
CPT/HCPCS: 36415; 80053; 81003; 82150; 83690; 84702; 85025; 86140; 96361; 96374; 96375; 99283; A9270-GY; J2765

== ENCOUNTER 2018-09-20 16:00 | Emergency (ER) | payer BC ==
--- NOTE | 2018-09-20 16:04 | UC ---
Ear Complaint HPI - HPI Summary HPI Summary: 22 yo female presents with RIGHT ear pain. She tells me that she was treated for an outer ear infection in the middle of August with anbx ear drops. She used the drops for 7 days and discomfort resolved. For the last 2 weeks or so she has been having intermittent stabbing pain in her right ear with occasional clear/bloody drainage. Denies fever, chills, sinus symptoms, sore throat, cough. - History of Current Complaint Stated Complaint: RIGHT EAR PAIN Time Seen by Provider: 09/20/18 16:03 Hx Obtained From: Patient Hx Last Menstrual Period: 08/07/18 Onset/Duration: Gradual Onset Severity Initially: Moderate Severity Currently: Moderate Pain Intensity: 7 Pain Scale Used: 0-10 Numeric - Allergies/Home Medications Allergies/Adverse Reactions: Allergies Allergy/AdvReac Type Severity Reaction Status Date / Time No Known Allergies Allergy Verified 09/20/18 16:11 PMH/Surg Hx/FS Hx/Imm Hx - Additional Past Medical History Additional PMH: None - Surgical History Surgical History: Yes Surgery Procedure, Year, and Place: T&A - Family History Known Family History: Positive: Diabetes Family History: no cardio vasular issues in family lineage - Social History Lives: With Family Alcohol Use: Rare Substance Use Type: Marijuana Substance Use Comment - Amount & Last Used: occasionally Smoking Status (MU): Current Some Day Smoker Type: eCigarettes Amount Used/How Often: 1/2 PPD Length of Time of Smoking/Using Tobacco: 3-4 yrs Have You Smoked in the Last Year: Yes - quit with Household Exposure Type: Cigarettes - Immunization History Most Recent Influenza Vaccination: unknown Most Recent Tetanus Shot: unknown Most Recent Pneumonia Vaccination: none Review of Systems All Other Systems Reviewed And Are Negative: Yes Constitutional: Positive: Negative Skin: Positive: Negative Eyes: Positive: Negative ENT: Positive: Ear Ache Respiratory: Positive: Negative Cardiovascular: Positive: Negative Neurovascular: Positive: Negative Neurological: Positive: Negative Psychological: Positive: Negative Physical Exam - Summary Physical Exam Summary: GENERAL: NAD. WDWN. No pain distress. SKIN: No rashes, sores, lesions, or open wounds. HEENT: Head: AT/NC Eyes: EOM intact. Conjunctiva clear without inflammation or discharge. Ears: Hearing grossly normal. RIGHT TM with mild erythema and bulging. No canal edema or drainage. Healing partial TM rupture at 11 o'clock position. Nose: Nasal mucosa pink and moist. NTTP maxillary and frontal sinus. Throat: Posterior oropharynx without exudates, erythema, or tonsillar enlargement. Uvula midline. NECK: Supple. Nontender. No lymphadenopathy. CHEST: CTAB. No r/r/w. No accessory muscle use. Breathing comfortably and in no distress. CV: RRR. Without m/r/g. Pulses intact. NEURO: Alert. PSYCH: Age appropriate behavior. Triage Information Reviewed: Yes Vital Signs: Vital Signs: Temp Pulse Resp BP Pulse Ox 98.8 F 92 12 132/82 100 09/20/18 16:06 09/20/18 16:06 09/20/18 16:06 09/20/18 16:06 09/20/18 16:06 Vital Signs Reviewed: Yes Ear Complaint Course/Dx - Course Course Of Treatment: Otitis media with recent TM rupture - healing. - Differential Dx/Diagnosis Provider Diagnosis: Otitis media Discharge - Sign-Out/Discharge Documenting (check all that apply): Patient Departure All imaging exams completed and their final reports reviewed: No Studies - Discharge Plan Condition: Stable Disposition: HOME Prescriptions: Amoxicillin PO (*) [Amoxicillin 875 MG (*)] 875 mg PO BID #14 tab Patient Education Materials: Ruptured Eardrum (ED), Ear Infection (ED) Referrals: Elizabeth Vallejo MD [Primary Care Provider] - Adonay Tolliver MD [Medical Doctor] - If Needed Additional Instructions: If you develop a fever, shortness of breath, chest pain, new or worsening symptoms - please call your PCP or go to the ED immediately. Do not put anything into your ear If your pain continues or worsens - please call the Ear, Nose, and Throat doctor at the number below to schedule an appointment for a recheck - Billing Disposition and Condition Condition: STABLE Disposition: Home - Attestation Statements Provider Attestation: I was available for consult. This patient was seen by the [facility]. The patient was not presented to, seen by, or examined by me. -Ericka
[2018-09-20 16:12] VITALS: BP 132/82
== END 2018-09-20 16:31 | disposition home or self-care (01) ==
LOC: UCEAST 16:00
DX: H66.91 Otitis media, unspecified, right ear (principal)
CPT/HCPCS: 99212; G0463